=== PATIENT | female | born 1955 | race Caucasian/White ===

== ENCOUNTER → 2023-05-06 | Outpatient (CLI) | payer MEDICARE ==
[2023-05-07 10:27] LABS: Stool Occult Bld Immuno 1 Positive (NEGATIVE)
== END ==
LOC: LAB 07:20 → LAB SHORT 07:20
PROVIDERS: Physician Assistant
DX: K92.1 Melena (principal)
CPT/HCPCS: 82274

== ENCOUNTER → 2023-07-25 | Outpatient (CLI) | payer MEDICARE ==
[~2023-07-25] MED LIST: PANT40; TRAZ50
== END | disposition home or self-care (01) ==
LOC: LAB 07:00 → LAB SHORT 07:00
PROVIDERS: Physician Assistant Medical
DX: K52.9 Noninfective gastroenteritis and colitis, unspecified (principal); R19.5 Other fecal abnormalities
CPT/HCPCS: 82653; 83993

== ENCOUNTER 2023-07-29 10:06 | Day surgery (SDC) | payer MEDICARE ==
[~2023-07-29] VITALS: Ht 167.6 cm; Wt 70.9 kg
[2023-07-29] MEDS ORDERED: PANT40 (10:19)
[2023-07-29] MEDS ORDERED: TRAZ50 (10:19)
[2023-07-29 12:28] VITALS: BP 141/81
== END 2023-07-29 12:20 | disposition home or self-care (01) ==
LOC: ORSCSDS 10:06
PROVIDERS: Internal Medicine Gastroenterology
PROC: 0DB98ZX Excision of Duodenum, Via Natural or Artificial Opening Endoscopic, Diagnostic (ICD-10-PCS; principal; 2023-07-29 11:30)
PROC: 3E0H8GC Introduction of Other Therapeutic Substance into Lower GI, Via Natural or Artificial Opening Endoscopic (ICD-10-PCS; principal; 2023-07-29 11:30)
PROC: 0DBM8ZX Excision of Descending Colon, Via Natural or Artificial Opening Endoscopic, Diagnostic (ICD-10-PCS; principal; 2023-07-29 11:30)
PROC: 0DBL8ZX Excision of Transverse Colon, Via Natural or Artificial Opening Endoscopic, Diagnostic (ICD-10-PCS; principal; 2023-07-29 11:30)
PROC: 0DB78ZX Excision of Stomach, Pylorus, Via Natural or Artificial Opening Endoscopic, Diagnostic (ICD-10-PCS; principal; 2023-07-29 11:30)
PROC: 0D758ZZ Dilation of Esophagus, Via Natural or Artificial Opening Endoscopic (ICD-10-PCS; principal; 2023-07-29 11:30)
DX: K62.5 Hemorrhage of anus and rectum (principal); C19 Malignant neoplasm of rectosigmoid junction; R19.7 Diarrhea, unspecified; R14.0 Abdominal distension (gaseous); D12.3 Benign neoplasm of transverse colon; D12.4 Benign neoplasm of descending colon; K29.70 Gastritis, unspecified, without bleeding; K44.9 Diaphragmatic hernia without obstruction or gangrene; K22.2 Esophageal obstruction; K57.30 Diverticulosis of large intestine without perforation or abscess without bleeding; Z79.899 Other long term (current) drug therapy
CPT/HCPCS: 88305; 88342; C1726; J2704; J7120

== ENCOUNTER 2024-08-05 06:52 | Day surgery (SDC) | payer MEDICARE ==
[~2024-08-05] VITALS: Ht 165.1 cm; Wt 161.4 kg
[2024-08-05] MEDS ORDERED: CREON DR 12,001 EACH (07:13)
[2024-08-05] MEDS ORDERED: Lactated Ringer's 1,000 ML IV ONE ×2 (07:20→07:54)
[2024-08-05] MEDS ORDERED: propofoL 50 ML IV ONE ×2 (07:20→07:25)
[2024-08-05 09:37] VITALS: BP 124/71
== END 2024-08-05 09:32 | disposition home or self-care (01) ==
LOC: ORSCSDS 06:52
PROVIDERS: Internal Medicine Gastroenterology
PROC: 0DB48ZX Excision of Esophagogastric Junction, Via Natural or Artificial Opening Endoscopic, Diagnostic (ICD-10-PCS; principal; 2024-08-05 08:00)
PROC: 0DB58ZX Excision of Esophagus, Via Natural or Artificial Opening Endoscopic, Diagnostic (ICD-10-PCS; principal; 2024-08-05 08:00)
PROC: 0DBN8ZX Excision of Sigmoid Colon, Via Natural or Artificial Opening Endoscopic, Diagnostic (ICD-10-PCS; principal; 2024-08-05 08:00)
PROC: 0DBK8ZX Excision of Ascending Colon, Via Natural or Artificial Opening Endoscopic, Diagnostic (ICD-10-PCS; principal; 2024-08-05 08:00)
PROC: 0DB78ZX Excision of Stomach, Pylorus, Via Natural or Artificial Opening Endoscopic, Diagnostic (ICD-10-PCS; principal; 2024-08-05 08:00)
DX: K21.9 Gastro-esophageal reflux disease without esophagitis (principal); R19.4 Change in bowel habit; Z85.038 Personal history of other malignant neoplasm of large intestine; R10.13 Epigastric pain; K29.60 Other gastritis without bleeding; D12.2 Benign neoplasm of ascending colon; D12.5 Benign neoplasm of sigmoid colon; K57.30 Diverticulosis of large intestine without perforation or abscess without bleeding; F41.9 Anxiety disorder, unspecified; F32.A Depression, unspecified; J45.909 Unspecified asthma, uncomplicated; Z79.899 Other long term (current) drug therapy
CPT/HCPCS: 88305; 88342; J2704; J7120

== ENCOUNTER 2024-11-05 19:16 | Emergency (ER) | payer MEDICARE ==
[~2024-11-05] VITALS: Ht 167.6 cm; Wt 72.6 kg
[~2024-11-05 19:16] MED LIST changes: +CREON DR 12,001 EACH
[2024-11-05 19:40] VITALS: BP 162/96
[2024-11-05] MEDS ORDERED: AMOCLA875 PO (19:45)
== END 2024-11-05 19:40 | disposition home or self-care (01) ==
LOC: ER 19:16
DX: S61.411A Laceration without foreign body of right hand, initial encounter (principal); W55.03XA Scratched by cat, initial encounter; Z79.899 Other long term (current) drug therapy; Z88.5 Allergy status to narcotic agent
CPT/HCPCS: 99282

== ENCOUNTER 2025-08-11 09:36 | Day surgery (SDC) | payer MEDICARE ==
[~2025-08-11] VITALS: Ht 165.1 cm; Wt 73.9 kg
[~2025-08-11 09:36] MED LIST changes: +AMOCLA875 PO
[2025-08-11 11:18] VITALS: BP 118/65
== END 2025-08-11 11:05 | disposition home or self-care (01) ==
LOC: ORSCSDS 09:36
PROVIDERS: Internal Medicine Gastroenterology
PROC: 0DJD8ZZ Inspection of Lower Intestinal Tract, Via Natural or Artificial Opening Endoscopic (ICD-10-PCS; principal; 2025-08-11 11:00)
DX: Z12.11 Encounter for screening for malignant neoplasm of colon (principal); K57.30 Diverticulosis of large intestine without perforation or abscess without bleeding; Z86.0101 Personal history of adenomatous and serrated colon polyps; Z80.0 Family history of malignant neoplasm of digestive organs
CPT/HCPCS: J2704; J7120